=== PATIENT | female | born 1985 | race Caucasian/White ===

== ENCOUNTER 2017-02-19 08:10 | Inpatient (IN) | payer BC ==
[2017-02-19] MEDS ORDERED: Oxytocin in LR* 20 UNITS/1,000 ML BAG IVPB SCH (10:00)
[2017-02-19 10:18] LABS: Hematocrit 39 % (35-47); Hemoglobin 13.1 g/dl (12.0-16.0); Mean Corpuscular HGB Conc 34 g/dl (31-36); Mean Corpuscular Hemoglobin 30 pg (27-31); Mean Corpuscular Volume 90 fL (80-97); Mean Platelet Volume 9 um3 (7.4-10.4); Red Blood Count 4.32 10^6/ul (4.0-5.4); Red Cell Distribution Width 14 % (10.5-15); White Blood Count 10.5 10^3/ul (3.5-10.8)
[2017-02-19] MEDS ORDERED: OBEPIDURAL* 250 ML ONE (20:46)
[2017-02-19] MEDS ORDERED: fentaNYL* 50 MCG/ML 2 ML VIAL (100 MCG VIAL) ONE (20:50)
[2017-02-19] MEDS ORDERED: Sodium Citrate/Citric Acid* 15 ML UDC PO PRN (21:33)
[2017-02-19] MEDS ORDERED: Phenylephrine IV* 40 MCG/ML 10 ML SYRINGE IV PUSH PRN ×2 (21:33)
[2017-02-19] MEDS ORDERED: Famotidine TAB* 20 MG PO PRN (21:33)
[2017-02-20] MEDS ORDERED: Acetaminophen TAB* 325 MG PO PRN (04:16)
[2017-02-20] MEDS ORDERED: Dibucaine 1% 28.35 GM TUBE PR PRN (04:16)
[2017-02-20] MEDS ORDERED: oxyCODONE/Acetamin 5/325 MG* TAB PO PRN (04:16)
[2017-02-20] MEDS ORDERED: Witch Hazel PAD* JAR TOPICAL PRN (04:16)
[2017-02-20] MEDS ORDERED: Glycerin ADULT SUPP PR PRN (04:16)
[2017-02-20] MEDS ORDERED: Oxytocin in LR* 20 UNITS/1,000 ML BAG IVPB SCH (05:00)
[2017-02-20] MEDS: Ibuprofen TAB* 600 MG PO PRN ×3 (07:25→19:20)
[2017-02-20] MEDS: Benzocaine/Menthol LOZ* 1 LOZENGE PO PRN (07:25)
[2017-02-20] MEDS: Docusate CAP* 100 MG PO SCH ×3 (08:19→19:20)
[2017-02-21] MEDS: Ibuprofen TAB* 600 MG PO PRN ×3 (04:16→19:22)
[2017-02-21 05:56] LABS: Hematocrit 29 % (35-47); Hemoglobin 9.6 g/dl (12.0-16.0); Mean Corpuscular HGB Conc 33 g/dl (31-36); Mean Corpuscular Hemoglobin 30 pg (27-31); Mean Corpuscular Volume 91 fL (80-97); Mean Platelet Volume 8 um3 (7.4-10.4); Red Blood Count 3.19 10^6/ul (4.0-5.4); Red Cell Distribution Width 14 % (10.5-15); White Blood Count 10.3 10^3/ul (3.5-10.8)
[2017-02-21] MEDS: Ferrous Gluconate TAB* 324 MG TAB PO SCH ×2 (09:06→22:29)
[2017-02-21] MEDS: Docusate CAP* 100 MG PO SCH ×3 (09:06→22:30)
--- NOTE | 2017-02-21 10:24 | PTEDU ---
Patient Name: SANNA JOHNSON SANNA JOHNSON selected video: Never Ever Shake a Baby to view on 02/21/2017 at 10:24:08 AM from [id number]
--- NOTE | 2017-02-21 10:34 | PTEDU ---
Patient Name: SANNA JOHNSON SANNA JOHNSON selected video: BBOB: Bonding Through Infant Massage to view on 02/21/2017 at 10:33: 26 AM from [id number]
[2017-02-21] MEDS: Benzocaine/Menthol LOZ* 1 LOZENGE PO PRN (19:22)
[2017-02-21] MEDS: OBEPIDURAL* 250 ML EPIDURAL SCH (23:35)
[2017-02-22] MEDS: Benzocaine/Menthol LOZ* 1 LOZENGE PO PRN (05:18)
[2017-02-22 08:14] VITALS: BP 123/59
[2017-02-22] MEDS: Docusate CAP* 100 MG PO SCH (08:24)
[2017-02-22] MEDS: Ibuprofen TAB* 600 MG PO PRN (08:24)
[2017-02-22] MEDS: Ferrous Gluconate TAB* 324 MG TAB PO SCH (08:24)
[2017-02-22] MEDS ORDERED: Azithromycin TAB* 250 MG PO SCH (11:00)
== END 2017-02-22 13:25 | disposition home or self-care (01) | DRG 560 ==
LOC: MCHOBOUT 08:10 → MCHOB 08:29
PROVIDERS: ADMIT Midwife; ATTEND Obstetrics & Gynecology
PROC: 3E033VJ Introduction of Other Hormone into Peripheral Vein, Percutaneous Approach (ICD-10-PCS; principal; 2017-02-19)
PROC: 10D07Z3 Extraction of Products of Conception, Low Forceps, Via Natural or Artificial Opening (ICD-10-PCS; 2017-02-19)
PROC: 0W8NXZZ Division of Female Perineum, External Approach (ICD-10-PCS; 2017-02-19)
PROC: 4A1HX4Z Monitoring of Products of Conception, Cardiac Electrical Activity, External Approach (ICD-10-PCS; 2017-02-19)
DX: O69.1XX0 Labor and delivery complicated by cord around neck, with compression, not applicable or unspecified (principal); O48.0 Post-term pregnancy; O66.0 Obstructed labor due to shoulder dystocia; O32.6XX0 Maternal care for compound presentation, not applicable or unspecified; O99.824 Streptococcus B carrier state complicating childbirth; O76 Abnormality in fetal heart rate and rhythm complicating labor and delivery; O62.1 Secondary uterine inertia; O90.81 Anemia of the puerperium; Z37.0 Single live birth; Z3A.41 41 weeks gestation of pregnancy; O66.5 Attempted application of vacuum extractor and forceps; Z83.3 Family history of diabetes mellitus; Z82.3 Family history of stroke; Z81.8 Family history of other mental and behavioral disorders
CPT/HCPCS: 36415; 85025; 86850; 86900; 86901; A9270-GY; J3010

== ENCOUNTER 2018-10-26 09:14 | Inpatient (IN) | payer BC ==
[2018-10-26] MEDS ORDERED: Lactated Ringers 1000 ML Bag* 1,000 ML IV ONE ×2 (10:14→20:43)
[2018-10-26 10:37] LABS: ABS Basophils 0 10^3/ul (0-0.2); ABS Eosinophils 0.1 10^3/ul (0-0.6); ABS Lymphocytes 1.2 10^3/ul (1.0-4.8); ABS Monocytes 0.7 10^3/ul (0-0.8); ABS Neutrophils 5.6 10^3/ul (1.5-7.7); ABS Nucleated RBC 0 10^3/ul; Eosinophil % 0.8 %; Hematocrit 37 % (33-41); Hemoglobin 12.7 g/dL (12.0-16.0); Mean Corpuscular HGB Conc 34 g/dL (31-36); Mean Corpuscular Hemoglobin 30 pg (27-31); Mean Corpuscular Volume 87 fL (80-97); Nucleated Red Blood Cells % 0; Platelet Count 178 10^3/uL (150-450); Red Blood Count 4.27 10^6 /uL (3.70-4.87); Red Cell Distribution Width 14 % (10.5-15); White Blood Count 7.6 10^3/uL (3.5-10.8)
--- NOTE | 2018-10-26 10:45 | HP ---
General Information - Reason for Visit Patient here for induction of labor at 39+4 weeks gestation due to history of should dystocia with previous delivery. - General Information Maternal Age: 33 Grav: 3 Para: 1 SAB: 1 IEA: 0 Estimated Due Date: 11/01/18 Determined By: LMP Maternal Blood Type and Rh: O Positive - Results this Serology/RPR Result: Non-Reactive Rubella Result: Immune HBsAg Result: Negative HIV Result: Negative GBS Culture Result: Negative Past Medical History Delivery History: Hx Complicated Vaginal Delivery - 02/2017 Pushed 2 hours, vacuum delivery for Cat 2 FHT with shoulder dystocia Pertinent Past Medical History: Non-Contributory Past Medical History Comment: Allergies Anxiety (past) Pertinent Past Surgical History: See Records Past Surgical History Comment: [place] tooth extraction D&C 2015 Pertinent Family History: Non-Contributory Family History Comment: Schizophrenia stroke Dementia Diabetes Arthritis Cancer (prostrate) - Antepartal Records Antepartal Records: Reviewed, Uncomplicated Review of Systems Constitutional: Comfortable CV Complaint: No Respiratory: Shortness of Breath: No Gastrointestinal: No Nausea/Vomiting, Normal Bowel Movement Genitourinary: No Dysuria, No Bleeding, No Leaking Fluid Musculoskeletal: No Complaint Neurological: No Headache, No Visual Changes Movement: Normal Exam Allergies/Adverse Reactions: Allergies No Known Drug Allergies Allergy (Verified 10/26/18 10:38) NKA SEASONAL Allergy (Intermediate, Uncoded 02/05/17 16:31) Congestion Vital Signs 10/26/18 09:37 Temperature 98.0 F Pulse Rate 108 Respiratory 20 Rate Blood Pressure 115/71 (mmHg) O2 Sat by Pulse 99 Oximetry Lab Values - Entire Visit: Laboratory Tests 10/26/18 10:20 WBC 7.6 RBC 4.27 Hgb 12.7 Hct 37 MCV 87 MCH 30 MCHC 34 RDW 14 Plt Count 178 MPV 9.0 Neut % (Auto) 73.2 Lymph % (Auto) 16.0 Emmet % (Auto) 9.5 Eos % (Auto) 0.8 Baso % (Auto) 0.5 Absolute Neuts (auto) 5.6 Absolute Lymphs (auto) 1.2 Absolute Monos (auto) 0.7 Absolute Eos (auto) 0.1 Absolute Basos (auto) 0 Absolute Nucleated RBC 0 Nucleated RBC % 0 - Measurements Height: 5 ft 5 in Weight: 231 lb Weight in lbs: 231.374900 Body Mass Index (BMI): 38.4 Pre- Weight: 192 lb Weight Gained This : 39 lbs and 0 ozs - Exam Breast: Breast Exam Deferred CVA: No CVA Tenderness Extremities: No Edema Heart: Normal Rhythm/Heart Sounds HEENT: No Significant Findings Lungs: Clear Bilaterally Rectal: Rectal Exam Deferred Reflexes: DTR 2+, - - no clonus Thyroid: - - Abdominal Exam Abdomen Exam: Non-Tender, Fundal Height Consistent with Dates - Ultrasound/Biophysical Profile Ultrasound Status: Not Done Targeted Exam Findings Estimated Weight: 7.5-8lb Cervical Exam: 2cm Effacement: 70% Station: -1 Presenting Part: Vertex Membrane Status: Intact Bleeding/Discharge: None EFM Findings - External Monitor Findings Baseline Heart Rate: 150 External Monitor Findings: Accelerations Present, No Pattern of Variable or Late Decelerations, Variability Moderate Contractions: Irregular, Mild Contraction Frequency: BHCs Assessment/Plan - Assessment 33 yo with IUP @ 39+1 weeks gestation for induction of labor. IBOW. No evidence metabolic acidemia. - Plan Plan: Induction, Admit - Anticipate Vaginal Delivery Plan Comment: Admit to L&D. Initiate low dose pitocin and titrate per protocol. Pain management as desired; patient may want labor epidural. Anticipate SVB, precautions for shoulder dystocia. - Date/Time of Admission Date of Admission: 10/26/18 Time of Admission: 10:12
[2018-10-26] MEDS ORDERED: Oxytocin in LR* 20 UNITS/1,000 ML BAG IVPB SCH (11:00)
[2018-10-26] MEDS ORDERED: Lactated Ringers 1000 ML Bag* 1,000 ML IV SCH ×2 (11:00→21:00)
--- NOTE | 2018-10-26 13:08 | PN ---
Progress Note - Progress Note Date of Service: 10/26/18 Note: S: Patient comfortable, reports mild contractions. Eating light lunch O: Pit @ 8 VE deferred FHT 125-130, +accels, no decels, mod marianela UCs q 2-4 min A: IUP @ 39+1 weeks gestation for induction of labor no evidence acidemia P: Continue pitocin titration, recheck with change in contraction intensity or if no change.
--- NOTE | 2018-10-26 17:50 | PN ---
Progress Note - Progress Note Date of Service: 10/26/18 Note: S: Patient reports contractions a little stronger and more frequent. O: Pit at 22 VE deferred per patient preference FHT 125, Cat 1 UCs q 2-4 min VSS, Afebrile A: IUP @ 39+1 for induction of labor No evidence acidemia Previous hx shoulder dystocia P: Continue pitocin titration. Discussed possibility of pitocin rest if max reached without change. Plan to reassess around 2100.
--- NOTE | 2018-10-26 19:56 | PN ---
Progress Note - Progress Note Date of Service: 10/26/18 Note: S: Patient reports contractions stronger and desires VE and to talk about pain medication. O: VE 4cm/90/-1 Pit @ 25 FHT 125, +accels, rare variable decels, VSS, afebrile UCs q 2-3 min A: IUP @ 39+1 weeks, for induction in active labor labor No evidence metabolic acidemia P: PARQ disc nitrous vs epidural for pain relief. Patient desires epidural; anesthesia paged. Addendum: while writing note, patient reports SROM to clear fluid.
[2018-10-26] MEDS ORDERED: OBEPIDURAL* 250 ML EPIDURAL ONE (20:02)
[2018-10-26] MEDS ORDERED: EPHEDrine (Pressors)* 50 MG/ML VIAL IV PUSH PRN ×2 (20:43)
[2018-10-26] MEDS ORDERED: Sodium Citrate/Citric Acid* 15 ML UDC PO PRN (20:43)
[2018-10-26] MEDS ORDERED: Phenylephrine 40 MCG/ML SYRINGE IV PUSH PRN ×2 (20:43)
[2018-10-26] MEDS ORDERED: Famotidine TAB* 20 MG PO PRN (20:43)
[2018-10-26] MEDS ORDERED: OBEPIDURAL* 250 ML EPIDURAL SCH (21:00)
[2018-10-27] MEDS ORDERED: Dibucaine 1% 28.35 GM TUBE PR PRN (03:05)
[2018-10-27] MEDS ORDERED: Witch Hazel PAD* JAR TOPICAL PRN (03:05)
[2018-10-27] MEDS ORDERED: Acetaminophen TAB* 325 MG PO PRN (03:05)
[2018-10-27] MEDS ORDERED: Glycerin ADULT SUPP PR PRN (03:05)
[2018-10-27] MEDS ORDERED: Lactated Ringers 1000 ML Bag* 1,000 ML IV SCH (04:00)
[2018-10-27] MEDS: Ibuprofen TAB* 600 MG PO PRN ×4 (04:06→22:05)
[2018-10-27] MEDS: Docusate CAP* 100 MG PO SCH ×3 (09:18→22:06)
--- NOTE | 2018-10-27 15:57 | PROCNOTE ---
[facility] OB: Delivery Note - Delivery A Date of : 10/27/18 Time of : 02:49 [place] Sex: Female Weight at : 7 lb 8 oz Score 1 Minute: 9 Score 5 Minutes: 9 Gestational Age in Weeks and Days at Delivery: 39 Weeks and 2 Days Delivery Method: Spontaneous Vaginal Labor: Induced Did Patient attempt ?: N/A, No Previous Amniotic Fluid: Clear Estimated Blood Loss: 250 Anesthesia/Analgesia: CEI for Labor Delivered By: Dorian Capellan - Nursery Level of Nursery: Regular/Bedside - Perineum Perineal Injury: None/Intact Perineal Repair: None - Events Delivery Events of Note: Pitocin During Labor - Additional Delivery Notes Additional Delivery Notes: Patient admitted for IOL for previous hx of shoulder dystocia. Pitocin induction lead to active labor with SROM. Patient received epidural as desired with good relief and progression to complete dilation. Peanut ball and "labor down" lead to increased pressure with minor urge to push. Coached through various positions with increasingly effective pushes. LOL 15'54", pushed 1 hour 34 min, though final push was to in one. Slow controlled delivery of head in OA with restitution to ANNA, shoulders following with maternal efforts; @ 0249. Baby to maternal abdomen with spontaneous cry and HR >110. Cord doubly clamped and cut by FOB once pulsations ceased, approx 1 -2 min. Apgars 9, 9. Placenta delivered in [place] presentation with gentle cord traction @ 0254. Intact membrane and 3vc noted. Fundus firm to massage with minimal bleeding noted. EBL 250ml. Baby at breast to initiate . Both mother and baby stable. Baby name Ree Horta.
[2018-10-28 06:47] LABS: ABS Basophils 0 10^3/ul (0-0.2); ABS Eosinophils 0.1 10^3/ul (0-0.6); ABS Lymphocytes 2.1 10^3/ul (1.0-4.8); ABS Monocytes 0.7 10^3/ul (0-0.8); ABS Neutrophils 5.6 10^3/ul (1.5-7.7); ABS Nucleated RBC 0 10^3/ul; Eosinophil % 1.6 %; Hematocrit 35 % (33-41); Hemoglobin 11.7 g/dL (12.0-16.0); Lymphocyte % 24.6 %; Mean Corpuscular HGB Conc 34 g/dL (31-36); Mean Corpuscular Hemoglobin 30 pg (27-31); Mean Corpuscular Volume 88 fL (80-97); Mean Platelet Volume 8.8 fL (7.4-10.4); Nucleated Red Blood Cells % 0; Platelet Count 160 10^3/uL (150-450); Red Blood Count 3.94 10^6 /uL (3.70-4.87); Red Cell Distribution Width 14 % (10.5-15); White Blood Count 8.6 10^3/uL (3.5-10.8)
[2018-10-28 08:36] VITALS: BP 100/63
[2018-10-28] MEDS ORDERED: Ferrous Gluconate TAB* 324 MG TAB PO SCH (09:00)
[2018-10-28] MEDS: Ibuprofen TAB* 600 MG PO PRN (09:27)
[2018-10-28] MEDS: Docusate CAP* 100 MG PO SCH (09:27)
== END 2018-10-28 10:38 | disposition home or self-care (01) | DRG 560 ==
LOC: MCHOBOUT 09:14 → MCHOB 10:12
PROVIDERS: ADMIT Midwife; ATTEND Midwife
PROC: 10E0XZZ Delivery of Products of Conception, External Approach (ICD-10-PCS; principal; 2018-10-27)
PROC: 3E033VJ Introduction of Other Hormone into Peripheral Vein, Percutaneous Approach (ICD-10-PCS; 2018-10-27)
PROC: 10907ZC Drainage of Amniotic Fluid, Therapeutic from Products of Conception, Via Natural or Artificial Opening (ICD-10-PCS; 2018-10-27)
DX: O99.344 Other mental disorders complicating childbirth (principal); Z37.0 Single live birth; F41.9 Anxiety disorder, unspecified; Z3A.39 39 weeks gestation of pregnancy
CPT/HCPCS: 36415; 85025; 86592; 86850; 86900; 86901; A9270-GY